=== PATIENT | female | born 1955 | race Caucasian/White ===

== ENCOUNTER 2016-12-17 19:20 | Inpatient (IN) | payer OTHER ==
--- NOTE | ~2016-12-17 | HP ---
History And Physical [place] [address] [facility] [place] [place]. [address] NAME: NEVAEH RIGGINS : 51 STATUS : ADM Mark PAT#: [id number] AGE: 61 ADM/REG DATE : 12/17/16 MR#: [id number] REPORT SERV DATE: 12/18/16 DICTATED BY: HUNG LEE DATE: 12/17/16 REPORT STATUS : Draft TRANSCRIBED BY: JENI DATE: 12/17/16 DATE OF ADMISSION: 12/17/2016 POINT OF ENTRY: [facility] Emergency Department. CHIEF COMPLAINT: Nausea, vomiting, diarrhea, and palpitations. HISTORY OF PRESENT ILLNESS: Ms. Riggins is a 61-year-old female with history of gastroesophageal reflux disease, hiatal hernia, hypertension, as well as an undetermined arrhythmia, who presents to the emergency department today with the above-mentioned complaints. The patient states that she has some unknown arrhythmia. She underwent extensive cardiac evaluation in [place] about 6 years ago, reportedly was unremarkable, but takes Toprol-XL 50 mg daily for this arrhythmia. The patient reports compliance with the medication, last dose taken was this morning. The patient states that she will occasionally have some palpitations. Beginning today, she noted that she was having palpitations, that her heart was just racing and pounding in her chest. This prompted her to go to her physician. At that time, her heart rate was noted to be in the 140s and she was referred to the emergency department. She denies any chest pain or shortness of breath. The patient also reports the acute onset of nausea, vomiting, and profuse watery diarrhea, also beginning today. She denies any recent fevers, night sweats, or chills. She does have some occasional epigastric and periumbilical abdominal pain with these symptoms. Of note, she does have a family member who is currently admitted to our hospital for the past 3 days with the same GI issues and complaints. The patient also states that she almost passed out in our restroom while having a diarrheal stool. She does feel weak and fatigued. She denies any fevers, night sweats, chills, chest pain, shortness of breath, cough, sputum production, constipation, dysuria, melena, hematochezia, hemoptysis, or lower extremity edema. REVIEW OF SYSTEMS: Comprehensive review of systems is otherwise negative unless listed in history of present illness. Initial evaluation in the emergency department is notable for a heart rate initially of 153, it is now in the low 120s after receiving 1 L of IV fluids and some IV Lopressor. Labs are otherwise unremarkable except for creatinine of 1.35. EKG shows sinus tachycardia with heart rates between 120s to 130s without any evidence of acute ischemia or infarction. Troponin was negative. She was subsequently admitted to the Hospitalist Service for further evaluation and management. MEDICAL HISTORY: History And Physical [address] [address] NAME: NEVAEH RIGGINS : 51 STATUS : ADM Mark PAT#: [id number] AGE: 61 ADM/REG DATE : 12/17/16 MR#: [id number] REPORT SERV DATE: 12/18/16 DICTATED BY: HUNG LEE DATE: 12/17/16 REPORT STATUS : Draft TRANSCRIBED BY: JENI DATE: 12/17/16 1. Gastroesophageal reflux disease with hiatal hernia. 2. Anxiety. 3. Hypertension. 4. Hyperlipidemia. 5. Arrhythmia, NOS. 6. Mitral valve prolapse. 7. Fibrocystic breast disease. 8. Basal cell carcinoma of the face. SURGICAL HISTORY: 1. Abdominal hysterectomy. 2. Tonsillectomy. 3. Appendectomy. 4. Multiple breast biopsies. ALLERGIES: 1. ELDER. 2. KEFLEX. 3. HERBAL COMPLEX. 4. SULFA DRUGS. 5. ASCORBIC ACID. 6. LASIX. 7. ECHINACEA. 8. [place]S WORT. 9. GINSENG. 10.VALIUM. 11.CODEINE. HOME MEDICATIONS: 1. Vitamin D 2000 units at bedtime. 2. Estradiol tablet at bedtime p.r.n. 3. Flonase 1 to 2 sprays nasal daily p.r.n. 4. Toprol-XL 50 mg daily. 5. Blue Grass-3 fish oil 1200 mg at bedtime. 6. Omeprazole 40 mg daily. 7. Vitamin E 400 units at bedtime. 8. Hydrochlorothiazide dose unknown. 9. Niacin [id number] dose unknown. SOCIAL HISTORY: She does smoke about half a pack per day. Denies alcohol. Denies illicits. FAMILY MEDICAL HISTORY: Mother with hypertension. Father , history of prostate cancer and coronary artery disease. She is an only child. LABS AND IMAGIN. White count 9.8, hemoglobin 17.1, hematocrit 48.0, platelet count 318. INR 1.0. 2. Sodium is 140, potassium 3.4, chloride 106, carbon dioxide 23, BUN 20, creatinine 1.35, History And Physical [address] [place]. [address] NAME: NEVAEH RIGGINS : 51 STATUS : ADM Mark PAT#: [id number] AGE: 61 ADM/REG DATE : 12/17/16 MR#: [id number] REPORT SERV DATE: 12/18/16 DICTATED BY: HUNG LEE DATE: 12/17/16 REPORT STATUS : Draft TRANSCRIBED BY: JENI DATE: 12/17/16 glucose is 149, calcium is 9.6, magnesium 2.1. 3. Chest x-ray per my review shows no acute cardiopulmonary abnormalities. Her lipase is 140. 4. Troponin less than 0.02. 5. EKG per my review shows sinus tachycardia with a heart rate of 133, no evidence of any acute ischemia or infarction, does have an S1Q3T3 pattern. EKG #2 per my review shows heart rate of 120, sinus tachycardia, no evidence of any acute ischemia or infarction, still has the same S1Q3T3 pattern. PHYSICAL EXAMINATION: VITAL SIGNS: Temperature is 96.6 degrees Fahrenheit, pulse is 153, respirations 22, saturating 98% on room air, blood pressure 134/84. On recheck, blood pressure now 139/85, heart rate of 119. GENERAL: The patient is awake, alert, in no acute distress, resting comfortably. She is a well-developed, well-nourished female. HEENT: Atraumatic and normocephalic. Slightly dry mucous membranes. Pupils are equal, round, reactive to light and accommodation. Extraocular movements intact. No scleral icterus. NECK: No jugular venous distention or carotid bruits. CARDIAC: Tachycardic rate, regular rhythm. No murmurs or gallops. Normal S1, S2. LUNGS: Clear to auscultation bilaterally. No wheezes, rhonchi, or crackles. ABDOMEN: Soft. Somewhat tender to palpation over the epigastrium. No rebound, guarding, or rigidity. Hypoactive bowel sounds throughout. EXTREMITIES: Warm and perfused. No cyanosis, clubbing, or edema. SKIN: Warm and dry. PSYCH: Affect appropriate. NEURO: Alert and oriented x3. Cranial nerves 2 through 12 grossly intact. Speech is normal. Gait not assessed. ASSESSMENT: Ms. Riggins is a 61-year-old female with a history of arrhythmia, not otherwise specified, who presents with a one-day history of nausea, vomiting, and diarrhea, as well as racing heart rate. PROBLEM LIST: 1. Sinus tachycardia. 2. Dehydration. 3. Nausea, vomiting, and diarrhea. 4. Orthostasis. 5. History of arrhythmia, NOS. PLAN: 1. Sinus tachycardia. I suspect the patient's sinus tachycardia is likely due to dehydration and her underlying gastrointestinal illness as well as maybe some contribution from her underlying diagnosis of arrhythmia. We will continue the patient's home Toprol-XL, provide aggressive IV fluid hydration. We will continue to check cardiac enzymes as well as urine drug screen and thyroid function studies. Given the S1Q3T3 pattern, we will check a D-dimer level; however, her Wells score is low at [facility] [address] [address] NAME: NEVAEH RIGGINS : 51 STATUS : ADM Mark PAT#: [id number] AGE: 61 ADM/REG DATE : 12/17/16 MR#: [id number] REPORT SERV DATE: 12/18/16 DICTATED BY: HUNG LEE DATE: 12/17/16 REPORT STATUS : Draft TRANSCRIBED BY: MODL DATE: 12/17/16 1.5 and those points are only for tachycardia. She is not hypoxic, she is not complaining of any shortness of breath, and does not have any other risk factors according to the Wells score. 2. Nausea, vomiting, and dehydration. Provide supportive care with IV fluids and antiemetics. We will check stool studies as well as a KUB. 3. Dehydration. We will provide IV fluid hydration, holding hydrochlorothiazide. 4. Orthostasis. Checking orthostatic vital signs. Provide IV fluid hydration. 5. DVT prophylaxis. Lovenox subcu. CODE STATUS: The patient wished to be full code. KAYLEIGH/JENI Hung Lee MD / [id number] CC: Rose Medina D.O.
--- NOTE | ~2016-12-17 | DS ---
Discharge Summary [place] [id number] [facility] [place]. [address] NAME: NEVAEH RAYMOND : 51 STATUS : DIS IN PAT#: [id number] AGE: 61 ADM/REG DATE : 12/17/16 MR#: [id number] REPORT SERV DATE: 12/23/16 DICTATED BY: MARIUSZ HODGES DATE: 12/22/16 REPORT STATUS : Draft TRANSCRIBED BY: MODL DATE: 12/22/16 ADMISSION DATE: 12/17/2016 DISCHARGE DATE: 12/22/2016 DISCHARGE DIAGNOSES: 1. Rotavirus infection. 2. Intractable diarrhea secondary to above. 3. Nausea and vomiting also secondary to above. 4. Dehydration, present on admission, resolved. 5. Orthostasis, present on admission, resolved. 6. Hypertension. 7. Hyperlipidemia. 8. Anxiety. CONSULTS: None. PROCEDURES: None. HOSPITAL COURSE: This is a 61-year-old lady who was admitted to the hospital with intractable nausea, vomiting, and diarrhea. For details, please refer to excellent H and P dictated by Dr. Red Goldberg. In summary, the patient was admitted and was given supportive care. The patient has had a recent contact with family members who was diagnosed with Rotavirus. The patient was also found to be sick with rotavirus infection. Unfortunately, the patient has a pretty slow recovery process, and the patient has had high- volume frequent diarrhea all throughout the hospital stay up until the past couple of days when her bowel movements became slightly more formed. Otherwise, the patient did not have any other acute complications, and the patient remained hemodynamically stable throughout the entire hospital stay. With IV fluid hydration and supportive care, patient's initial presenting symptoms of orthostasis and dehydration had resolved. The patient is now being discharged home with close outpatient followup instructions. DISCHARGE MEDICATIONS: No changes. DISPOSITION: Home. FOLLOWUP: Please follow up with PCP in the next two to three weeks. A total of 25 minutes spent in coordinating this patient's discharge today. Gilberto/JENI Mariusz Hodges MD Discharge Summary [place] [id number] [facility] [place]. [address] NAME: NEVAEH RAYMOND : 51 STATUS : DIS IN PAT#: [id number] AGE: 61 ADM/REG DATE : 12/17/16 MR#: [id number] REPORT SERV DATE: 12/23/16 DICTATED BY: MARIUSZ HODGES DATE: 12/22/16 REPORT STATUS : Draft TRANSCRIBED BY: JENI DATE: 12/22/16 / [id number] CC: MD Rose Cash D.O.
[2016-12-17 18:23] LABS: BASOPHILS 0.2 %; BASOPHILS ABSOLUTE 0.02 10/3/uL (0.0-0.16); EOSINOPHILS 0.3 %; EOSINOPHILS ABSOLUTE 0.03 10/3/uL (0.0-0.53); ER CBC TAT 0 Hrs 09 Mins; HEMOGLOBIN 17.1 g/dL (12.0-16.0); IMMATURE GRANULOCYTES 0.3 %; IMMATURE GRANULOCYTES ABSOLUTE 0.03 10/3/uL (0.0-0.11); LYMPHOCYTES 8.3 %; LYMPHOCYTES ABSOLUTE 0.81 10/3/uL (0.67-4.30); MEAN CORPUS HGB CONC 35.6 g/dL (32.0-36.0); MEAN CORPUSCULAR HEMOGLOB 31.7 pg (26.0-34.0); MEAN CORPUSCULAR VOLUME 88.9 fL (80-100); MONOCYTES ABSOLUTE 0.39 10/3/uL (0.21-1.20); NEUTROPHILS 86.9 %; NEUTROPHILS ABSOLUTE 8.47 10/3/uL (2.02-8.40); PLATELET COUNT 318 10/3/uL (150-400); RBC DISTRIBUTION WIDTH 12.3 % (12.0-16.0); WHITE BLOOD CELLS 9.8 10/3/uL (4.5-10.5)
[2016-12-17 18:25] LABS: MANUAL DIFF NO %
[2016-12-17 18:27] LABS: PARTIAL THROMBO TIME 23.7 SEC (22.5-37.2); PROTIME (NOT ORD) 12.9 SEC (12.0-14.5)
[2016-12-17 18:34] LABS: BUN (BLOOD UREA NITROGEN) 20 MG/DL (6-23); CALCIUM, SERUM 9.6 MG/DL (8.5-10.4); CHEST PAIN PROFILE TAT 0 Hrs 20 Mins; CHLORIDE, SERUM 106 MMOL/L (96-112); CO2 (CARBON DIOXIDE) 23 MMOL/L (24-34); CREATININE 1.35 MG/DL (0.55-1.02); GFR AFRICAN AMERICAN 48 ML/MIN (>=60); GFR NON AFRICAN AMERICAN 42 ML/MIN (>=60); GLUCOSE, SERUM 149 MG/DL (60-99); POTASSIUM, SERUM 3.4 MMOL/L (3.5-5.3); SODIUM, SERUM 140 MMOL/L (135-148); TROPONIN I <0.02 NG/ML (<0.05)
[~2016-12-17 19:20] MED LIST: ESTRATESHS PO; FLONASE NAS; PROTONIX PO; THERAPEUTIC PO; X25 PO
[2016-12-17] MEDS ORDERED: HCTZ PO (23:20)
[2016-12-17] MEDS ORDERED: ESTRADIOL2 MG PO (23:21)
[2016-12-17] MEDS ORDERED: PRILOSEC40 MG PO (23:21)
[2016-12-17] MEDS ORDERED: VITE PO (23:22)
[2016-12-17] MEDS ORDERED: TOPXL50 PO (23:22)
[2016-12-17] MEDS ORDERED: VITAMIN D2000 UNIT PO (23:22)
[2016-12-17] MEDS ORDERED: FISH OIL1200 MG PO (23:22)
[2016-12-17] MEDS ORDERED: NIACIN OTC PO (23:23)
[2016-12-17] MEDS ORDERED: FLONASE NAS (23:23)
[2016-12-17 23:45] LABS: D-DIMER QUANTITATIVE 0.54 ug/mLFEU (< 0.50)
[2016-12-18 05:16] LABS: BASOPHILS 0.2 %; BASOPHILS ABSOLUTE 0.01 10/3/uL (0.0-0.16); EOSINOPHILS 0.2 %; EOSINOPHILS ABSOLUTE 0.01 10/3/uL (0.0-0.53); HEMATOCRIT 40.6 % (36.0-48.0); HEMOGLOBIN 14.2 g/dL (12.0-16.0); IMMATURE GRANULOCYTES 0.2 %; IMMATURE GRANULOCYTES ABSOLUTE 0.01 10/3/uL (0.0-0.11); LYMPHOCYTES 8.3 %; LYMPHOCYTES ABSOLUTE 0.53 10/3/uL (0.67-4.30); MANUAL DIFF NO %; MEAN CORPUSCULAR HEMOGLOB 31.6 pg (26.0-34.0); MEAN CORPUSCULAR VOLUME 90.2 fL (80-100); MEAN PLATELET VOLUME 9.5 fL (9.2-13.0); MONOCYTES 7.6 %; MONOCYTES ABSOLUTE 0.49 10/3/uL (0.21-1.20); NEUTROPHILS 83.5 %; NEUTROPHILS ABSOLUTE 5.37 10/3/uL (2.02-8.40); PLATELET COUNT 252 10/3/uL (150-400); RBC DISTRIBUTION WIDTH 12.2 % (12.0-16.0); WHITE BLOOD CELLS 6.4 10/3/uL (4.5-10.5)
[2016-12-18 05:40] LABS: ALBUMIN 3.3 G/DL (3.5-5.0); ALKALINE PHOSPHATASE 87 U/L (45-117); DIRECT BILIRUBIN 0.1 MG/DL (0.0-0.4); FREE T4 0.98 NG/DL (0.76-1.46); INDIRECT BILIRUBIN(NOT ORDER) 0.6 MG/DL (0.1-0.9); SGOT(AST) 15 U/L (5-40); SGPT(ALT) 25 U/L (5-65); TOTAL BILIRUBIN 0.7 MG/DL (0-1.2); TOTAL PROTEIN 6.8 G/DL (6.0-8.5); TROPONIN I 0.02 NG/ML (<0.05)
[2016-12-18 14:06] LABS: CHLORIDE, SERUM 111 MMOL/L (96-112); CO2 (CARBON DIOXIDE) 19 MMOL/L (24-34); CREATININE 1.09 MG/DL (0.55-1.02); GFR AFRICAN AMERICAN 63 ML/MIN (>=60); GFR NON AFRICAN AMERICAN 54 ML/MIN (>=60); POTASSIUM, SERUM 3.7 MMOL/L (3.5-5.3); SODIUM, SERUM 144 MMOL/L (135-148)
[2016-12-18 14:07] LABS: BUN (BLOOD UREA NITROGEN) 16 MG/DL (6-23); CALCIUM, SERUM 8.2 MG/DL (8.5-10.4); GLUCOSE, SERUM 108 MG/DL (60-99)
[2016-12-18 22:23] LABS: ASCORBIC ACID (UR NOT ORDER) NEG (NEG); BILIRUBIN, URINE NEGATIVE (NEG); KETONE, URINE NEGATIVE (NEG); LEUKOCYTE ESTERASE(NOT OR NEG (NEG); WBC (NOT ORDERED) (RFLEX) 2 (0-5)
[2016-12-18 22:43] LABS: AMPHETAMINES (NOT ORD) NEG (NEG); BARBITURATES (NOT ORDERED NEG (NEG); BENZODIAZEPINES (NOT ORD) NEG (NEG); CANNABINOIDS (THC) POS (NEG); COCAINE (NOT ORDERED) NEG (NEG); OPIATES NEG (NEG); PHENCYCLIDINE(PCP) NEG (NEG); TRICYCLICS NEG (NEG)
[2016-12-19 07:11] LABS: BASOPHILS 0.2 %; BASOPHILS ABSOLUTE 0.01 10/3/uL (0.0-0.16); EOSINOPHILS 0 %; HEMOGLOBIN 12.5 g/dL (12.0-16.0); LYMPHOCYTES 14.2 %; LYMPHOCYTES ABSOLUTE 0.73 10/3/uL (0.67-4.30); MEAN CORPUS HGB CONC 34.8 g/dL (32.0-36.0); MEAN CORPUSCULAR HEMOGLOB 31.1 pg (26.0-34.0); MEAN CORPUSCULAR VOLUME 89.3 fL (80-100); MEAN PLATELET VOLUME 9.4 fL (9.2-13.0); MONOCYTES 6.6 %; MONOCYTES ABSOLUTE 0.34 10/3/uL (0.21-1.20); NEUTROPHILS ABSOLUTE 4.05 10/3/uL (2.02-8.40); PLATELET COUNT 184 10/3/uL (150-400); RBC DISTRIBUTION WIDTH 12.4 % (12.0-16.0); RED CELL COUNT 4.02 10/6/uL (4.0-5.6); WHITE BLOOD CELLS 5.1 10/3/uL (4.5-10.5)
[2016-12-19 07:12] LABS: HEMATOCRIT 35.9 % (36.0-48.0); MANUAL DIFF NO %
[2016-12-19 07:18] LABS: CALCIUM, SERUM 7.6 MG/DL (8.5-10.4); CHLORIDE, SERUM 110 MMOL/L (96-112); GFR AFRICAN AMERICAN 91 ML/MIN (>=60); GFR NON AFRICAN AMERICAN 78 ML/MIN (>=60); GLUCOSE, SERUM 94 MG/DL (60-99); POTASSIUM, SERUM 3.3 MMOL/L (3.5-5.3); SODIUM, SERUM 143 MMOL/L (135-148)
[2016-12-19 07:19] LABS: BUN (BLOOD UREA NITROGEN) 8 MG/DL (6-23); CO2 (CARBON DIOXIDE) 23 MMOL/L (24-34)
[2016-12-19 11:21] LABS: ASCORBIC ACID (UR NOT ORDER) NEG (NEG); BILIRUBIN, URINE NEGATIVE (NEG); KETONE, URINE NEGATIVE (NEG); LEUKOCYTE ESTERASE(NOT OR NEG (NEG); WBC (NOT ORDERED) (RFLEX) 3 (0-5)
[2016-12-20 05:11] LABS: BUN (BLOOD UREA NITROGEN) 7 MG/DL (6-23); CALCIUM, SERUM 7.2 MG/DL (8.5-10.4); CHLORIDE, SERUM 108 MMOL/L (96-112); CO2 (CARBON DIOXIDE) 23 MMOL/L (24-34); GFR AFRICAN AMERICAN 91 ML/MIN (>=60); GFR NON AFRICAN AMERICAN 78 ML/MIN (>=60); GLUCOSE, SERUM 91 MG/DL (60-99); POTASSIUM, SERUM 3.6 MMOL/L (3.5-5.3); SODIUM, SERUM 140 MMOL/L (135-148)
[2016-12-21 05:32] LABS: BASOPHILS 0 %; EOSINOPHILS 0 %; HEMOGLOBIN 12.9 g/dL (12.0-16.0); LYMPHOCYTES 19.1 %; MANUAL DIFF NO %; MEAN CORPUS HGB CONC 35.8 g/dL (32.0-36.0); MEAN CORPUSCULAR HEMOGLOB 31.5 pg (26.0-34.0); MEAN CORPUSCULAR VOLUME 87.8 fL (80-100); MEAN PLATELET VOLUME 9.8 fL (9.2-13.0); MONOCYTES ABSOLUTE 0.25 10/3/uL (0.21-1.20); NEUTROPHILS 72.9 %; NEUTROPHILS ABSOLUTE 2.29 10/3/uL (2.02-8.40); PLATELET COUNT 148 10/3/uL (150-400); WHITE BLOOD CELLS 3.1 10/3/uL (4.5-10.5)
[2016-12-21 05:43] LABS: BUN (BLOOD UREA NITROGEN) 8 MG/DL (6-23); CALCIUM, SERUM 7.6 MG/DL (8.5-10.4); CHLORIDE, SERUM 103 MMOL/L (96-112); CO2 (CARBON DIOXIDE) 27 MMOL/L (24-34); CREATININE 0.81 MG/DL (0.55-1.02); GFR AFRICAN AMERICAN 90 ML/MIN (>=60); GFR NON AFRICAN AMERICAN 77 ML/MIN (>=60); GLUCOSE, SERUM 105 MG/DL (60-99); POTASSIUM, SERUM 3.7 MMOL/L (3.5-5.3); SODIUM, SERUM 137 MMOL/L (135-148)
[2016-12-22 05:12] LABS: BUN (BLOOD UREA NITROGEN) 8 MG/DL (6-23); CALCIUM, SERUM 7.8 MG/DL (8.5-10.4); CHLORIDE, SERUM 108 MMOL/L (96-112); CO2 (CARBON DIOXIDE) 25 MMOL/L (24-34); CREATININE 0.68 MG/DL (0.55-1.02); GFR AFRICAN AMERICAN 108 ML/MIN (>=60); GFR NON AFRICAN AMERICAN 93 ML/MIN (>=60); GLUCOSE, SERUM 103 MG/DL (60-99); POTASSIUM, SERUM 3.7 MMOL/L (3.5-5.3); SODIUM, SERUM 139 MMOL/L (135-148)
== END 2016-12-22 12:16 | disposition home or self-care (01) | DRG 641 ==
LOC: ER 19:20 → 6NO 19:30
PROVIDERS: Emergency Medicine; Internal Medicine
DX: E86.0 Dehydration (principal); A08.0 Rotaviral enteritis; N17.9 Acute kidney failure, unspecified; E83.42 Hypomagnesemia; F41.9 Anxiety disorder, unspecified; K21.9 Gastro-esophageal reflux disease without esophagitis; K44.9 Diaphragmatic hernia without obstruction or gangrene; R00.0 Tachycardia, unspecified; I95.1 Orthostatic hypotension; E87.6 Hypokalemia; I34.1 Nonrheumatic mitral (valve) prolapse; N60.19 Diffuse cystic mastopathy of unspecified breast; E78.5 Hyperlipidemia, unspecified; Z85.828 Personal history of other malignant neoplasm of skin; Z90.710 Acquired absence of both cervix and uterus; Z88.2 Allergy status to sulfonamides; Z88.5 Allergy status to narcotic agent; Z82.49 Family history of ischemic heart disease and other diseases of the circulatory system
CPT/HCPCS: 71020; 71275; 80048; 80076; 80305; 81001; 83605; 83690; 83735; 84439; 84443; 84484; 85025; 85379; 85610; 85730; 87045; 87046; 87046-59; 87328; 87329; 87425; 87493; 87493-59; 87899; 87899-59; 89055; 93005; 96361; 96374; 96375; 99291; A9270-GY; J2405; J3475; J3480; Q9967